=== PATIENT | male | born 1965 | race Caucasian/White ===

== ENCOUNTER 2024-03-12 20:39 | Observation (INO) | payer OTHER, SELFPAY ==
[2024-03-12] VITALS (11 sets, daily range): BP systolic 97–124; BP diastolic 66–91; PULSE 97–122; RESP 28; TEMP 36.8; O2SAT 94–97
--- NOTE | 2024-03-12 20:41 | ED_ITS ---
HPI - General Adult General Time Seen by Provider: 20:41 Date Seen: 03/12/24 Chief complaint: Shortness of Breath/Dyspnea Stated complaint: Diff breathing/severe pain lower abdomen Time Seen by Provider: 03/12/24 20:41 Source: patient Mode of arrival: ambulatory Limitations: no limitations History of Present Illness HPI narrative: Jorje is a 58-year-old male with history of elevated BMI, hypertension, shortness of breath recently thought to be related to fluid retention but also put on inhalers who comes to the emergency room with his son for evaluation of not feeling well. Jorje notes that over the last week he has had increased fluid retention and was put on a diuretic a week ago. He notes that he has been dealing with some shortness of breath for many months but today at 0300 hours it became suddenly worse. He has not been coughing nor has he had a fever but does does note that he is sweating. He states he just has not felt well all day. He notes he has had 3 days of constipation and this morning had a small amount of blood on the toilet paper. He has not been vomiting. He notes a new hip from 2020 on the left and he did have some tingling into his left foot. It is now better since he has changed positions on the bed. He denies a headache. He also notes that he has had change in his voice since being sick with respiratory illness in November. Patient states he was recently evaluated by his primary and he does not have congestive heart failure and had an echocardiogram and it was normal. However, he was put on a diuretic. He agrees that his lower extremities are swollen. He has a few beers daily. Patient is a very challenging historian as he hops from subject to subject. I understand that he was not feeling well all day and at 1600 hours had difficulty with breathing. He has had having difficulty breathing for months and has gone through different evaluations with his primary. He denies chest pain at this time but notes intermittent spasm in his right lower quadrant. He does note he has an umbilical hernia he has been constipated for 3 days. Related Data Home Medications Medication Instructions Recorded Confirmed atenolol 100 mg tablet 100 mg PO DAILY 03/12/24 03/12/24 atorvastatin 40 mg tablet 40 mg PO QPM 03/12/24 03/12/24 finasteride 5 mg tablet 5 mg PO DAILY 03/12/24 03/12/24 fluticasone 250 mcg-salmeterol 50 1 ea inhalation Q12H 03/12/24 03/12/24 mcg/dose blistr powdr for inhalation fluticasone propionate 50 2 spray intranasal DAILY 03/12/24 03/12/24 mcg/actuation nasal spray,suspension furosemide 40 mg tablet 40 mg PO DAILY 03/12/24 03/12/24 lisinopril 40 mg tablet 40 mg PO DAILY 03/12/24 03/12/24 tiotropium bromide 1.25 2 puff inhalation DAILY 03/12/24 03/12/24 mcg/actuation mist for inhalation (Spiriva Respimat) triamterene 37.5 1 cap PO QAM 03/12/24 03/12/24 mg-hydrochlorothiazide 25 mg capsule Allergies Allergy/AdvReac Type Severity Reaction Status Date / Time No Known Drug Allergies Allergy Verified 03/12/24 20:51 Review of Systems Status of ROS: Reports: 10 or more systems reviewed and unremarkable except as noted in History and below Const: Reports: fatigue; Denies: fever or chills Eyes: Denies: change in vision ENMT: Denies: neck pain, throat swelling, nasal discharge or nasal congestion Cardio: Reports: edema, swelling of feet/ankles, shortness of breath with exertion and shortness of breath when lying down; Denies: chest pain or lightheadedness Resp: Reports: shortness of breath; Denies: cough GI: Reports: abdominal pain, constipation and blood in stool (Small amount of blood on stool this morning); Denies: nausea or vomiting : Denies: painful urination Musculo: Reports: extremity pain (Improved with position change of left leg.); Denies: back pain or neck pain Neuro: Denies: headache Endo: Reports: fatigue Allergy/Immuno: Denies: throat swelling PFSH PFSH Social History Smoking Status: Current every day smoker What tobacco products do you use: cigarettes Smoking packs per day: 1 Smoking cigarettes per day: 20.0 Do you use any of these nicotine containing products: None Second hand tobacco smoke exposure: No How often do you have a drink containing alcohol: 2-3 times a week How many standard drinks containing alcohol do you have on a typical day: 3 or 4 AUDIT-C Alcohol total score: 4 Non-prescribed substance use: denies use service: No Exam Narrative: Exam Narrative: Patient is awake and alert and very anxious. He is diaphoretic speaking quickly and states he is scared. He is very challenging with a history as he jumps from subject to subject. I am having a hard time ascertaining what is new verses chronic for him. Head is atraumatic normocephalic. Mute moist mucous membranes. Neck is supple. No lymphadenopathy. Heart with a tachycardic rate but normal rhythm. Lungs are actually clear bilaterally in the bases. Abdomen is obese soft no tenderness elicited. Reducible umbilical hernia noted. Lower extremities with 2+ edema. He is moving all extremities. Const: Vital Signs, click to edit/add: Vital Signs - 24 hr 03/12/24 20:42 03/12/24 20:49 03/12/24 20:58 Temperature 98.2 F Pulse Rate 112 H Pulse Rate [Pulse Oximeter] 122 H Respiratory Rate 28 H Blood Pressure Blood Pressure [Ri ght Upper Arm] 119/91 H Pulse Oximetry 94 94 96 Oxygen Delivery Me thod Nasal Cannula Oxygen Flow Rate 2 03/12/24 21:00 03/12/24 21:17 03/12/24 21:30 Temperature Pulse Rate 111 H 106 H 103 H Pulse Rate [Pulse Oximeter] Respiratory Rate Blood Pressure 97/79 Blood Pressure [Ri ght Upper Arm] Pulse Oximetry 96 95 95 Oxygen Delivery Me thod Oxygen Flow Rate 03/12/24 22:00 03/12/24 23:08 03/12/24 23:18 Temperature Pulse Rate 100 97 101 H Pulse Rate [Pulse Oximeter] Respiratory Rate Blood Pressure 103/66 Blood Pressure [Ri ght Upper Arm] Pulse Oximetry 96 96 94 Oxygen Delivery Me thod Oxygen Flow Rate 03/12/24 23:30 03/12/24 23:35 03/13/24 00:00 Temperature Pulse Rate 103 H 100 102 H Pulse Rate [Pulse Oximeter] Respiratory Rate Blood Pressure 124/76 Blood Pressure [Ri ght Upper Arm] Pulse Oximetry 97 95 96 Oxygen Delivery Me thod Oxygen Flow Rate 03/13/24 00:01 03/13/24 00:01 03/13/24 00:01 Temperature Pulse Rate 100 100 100 Pulse Rate [Pulse Oximeter] Respiratory Rate Blood Pressure 111/86 111/86 111/86 Blood Pressure [Ri ght Upper Arm] Pulse Oximetry 94 94 94 Oxygen Delivery Me thod Oxygen Flow Rate 03/13/24 00:30 03/13/24 00:31 03/13/24 00:31 Temperature Pulse Rate 105 H 105 H 105 H Pulse Rate [Pulse Oximeter] Respiratory Rate Blood Pressure 116/80 116/80 Blood Pressure [Ri ght Upper Arm] Pulse Oximetry 95 95 95 Oxygen Delivery Me thod Oxygen Flow Rate 03/13/24 00:31 Temperature Pulse Rate 105 H Pulse Rate [Pulse Oximeter] Respiratory Rate Blood Pressure 116/80 Blood Pressure [Ri ght Upper Arm] Pulse Oximetry 95 Oxygen Delivery Me thod Oxygen Flow Rate Documenting provider has reviewed patient's vital signs: yes Course Course ED Course: At this time differential diagnosis is quite broad. Patient presents in a very dramatic fashion. Differential diagnosis includes but is not limited to aortic dissection, acute coronary event, congestive heart failure, pneumonia, COPD, appendicitis, bowel obstruction, PE. Will place an IV. Labs to include CBC, comprehensive panel, CRP, lactate and urinalysis. ProBNP has also been added as well as a lipase. O2 sats initially 92-94% on room air. I did add nasal cannula oxygen and patient did have relief more objectively than subjectively. Reevaluation(s) Reevaluation #1: During patient's stay realize that he had not been to CT for his stat chest abdomen pelvis as nursing was waiting on a creatinine. I have asked him to do a point of care creatinine. Reevaluation #2: Patient's heart rate has slowed to just over 100. Given a lactate of 4.1 I did start fluids but patient's immediately became short of breath. I do think there is an element of anxiety but we did discontinue fluids. Given history of fluid retention over the last week with a normal creatinine I did give him 40 mg of IV Lasix. He thinks that he has felt better slightly since he has been urinating. At this time EKG shows no acute findings except for tachycardia. Initial troponin is negative. Patient is refusing fluids. Alcohol level is elevated to 0.13. And pelvic CT is negative for aortic dissection or other acute findings. Doppler of the lower extremity shows no evidence of DVT. ProBNP is within normal limits. I do ask patient whether he smokes and he does not really answer me. I do speak about COPD and he states his doctor has been talking to him about that. A repeat troponin is negative and therefore will try a DuoNeb and give him a dose of steroids with working diagnosis of COPD as we have ruled out acute coronary event, DVT, dissection, pneumonia. Reevaluation #3: Patient did have some mild improvement after the nebulizer. O2 was taken off and patient does desat to 91%. He is also given 60 of Solu-Medrol. At this time given all the other negative findings working diagnosis is COPD exacerbation. I did add a urine and drug screen. Additional Reevaluation(s): Given dramatic presentation, multiple risk factors, persistent tachycardia I have elected to admit this gentleman to the hospital for ongoing observation. I did reassure his son that we found no evidence of acute coronary event, aortic dissection, bowel obstruction. Vital Signs Vital signs: Initial Vital Signs Temperature 98.2 F 03/12/24 20:42 Temperature Source Oral 03/12/24 20:42 Pulse Rate 122 H 03/12/24 20:42 Pulse Rhythm Regular 03/12/24 20:42 Pulse Strength 3+ Normal 03/12/24 20:42 Respiratory Rate 28 H 03/12/24 20:42 Blood Pressure 119/91 H 03/12/24 20:42 Blood Pressure Mean 100 03/12/24 20:42 Blood Pressure Position Sitting 03/12/24 20:42 Pulse Oximetry 94 03/12/24 20:42 Oxygen Delivery Method Nasal Cannula 03/12/24 20:42 Oxygen Flow Rate 2 03/12/24 20:42 Vital Signs Temperature 98.2 F 03/12/24 20:42 Pulse Rate 122 H 03/12/24 20:42 Respiratory Rate 28 H 03/12/24 20:42 Blood Pressure 119/91 H 03/12/24 20:42 Pulse Oximetry 94 03/12/24 20:42 Oxygen Delivery Method Nasal Cannula 03/12/24 20:42 Oxygen Flow Rate 2 03/12/24 20:42 Temperature 98.2 F 03/12/24 20:42 Pulse Rate 105 H 03/13/24 00:31 Respiratory Rate 28 H 03/12/24 20:42 Blood Pressure 116/80 03/13/24 00:31 Pulse Oximetry 95 03/13/24 00:31 Oxygen Delivery Method Nasal Cannula 03/12/24 20:42 Oxygen Flow Rate 2 03/12/24 20:42 Medications Administered Medications: Generic Name Dose Route Start Last Admin Trade Name Freq PRN Reason Stop Dose Admin Albuterol/Ipratropium 1 neb 03/13/24 00:55 03/13/24 01:15 Iprat-Albut 0.5-2.5 Mg/3 Ml Neb IH 03/13/24 00:56 1 neb ONCE ONE Administration Methylprednisolone Sodium Succinate 60 mg 03/13/24 00:55 03/13/24 01:15 Methylprednisolone Sod Succ 40 Mg/Ml IVP 03/13/24 00:56 60 mg ONCE ONE Administration Discontinued Medications Generic Name Dose Route Start Last Admin Trade Name Freq PRN Reason Stop Dose Admin Furosemide 40 mg 03/12/24 22:58 03/12/24 23:25 Furosemide 10 Mg/Ml Inj IVP 03/12/24 22:59 40 mg ONCE ONE Administration Sodium Chloride 1,000 mls @ 1,000 mls/hr 03/12/24 22:58 03/12/24 23:46 0.9 % Sodium Chloride 1000 Ml IV 03/12/24 23:57 0 mls/hr .Q1H [facility] Infusion Medical Decision Making MDM Narrative Medical decision making narrative: 1. COPD exacerbation-patient now admits that he is a smoker. Has tried to quit in the past. He has had difficulty with breathing for at least 4 months. Today he notes acute onset of shortness of breath at 1600 hours. He was diaphoretic and mildly hypoxic at 90-92% upon arrival. O2 did make him feel better. He was still quite restless. Initial chest x-ray did not show widened mediastinum but radiological over-read felt there might be a right lower lobe hazy opacity. Thi s was not noted on the CT and there is no evidence pneumonia on CT. CT of the chest abdomen and pelvis rule out an aortic dissection, pneumonia, intra- abdominal pathology. 2 sets of cardiac enzymes were negative. He continues to be tachycardic at this time. Did have relief with a DuoNeb and did receive Solu-Medrol 60 mg IV. 2. Persistent tachycardia-this is in the setting of an elevated white count of greater than 13,000, CRP of 1.7 and initial lactate of 4.1. Patient felt like he was becoming more and more short of breath when we tried to give him fluids and thus we did have to discontinue that. He had been given Lasix 40 mg as he had described increasing fluid retention throughout the week. He has urinated here quite a few times. There was no evidence of CHF on a chest x-ray and proBNP was 24. He has not had echocardiogram in the past. His follow-up lactate was 2.5 without any fluid. Drug screen is negative. No evidence of UTI or any other infection at this time. At this time I do believe that the leukocytosis is secondary to de margination. I do think patient was presenting with significant amount of anxiety. Note did do a lower extremity Doppler to ensure no evidence of DVT. It was negative. 3. Abdominal discomfort-this was intermittent and I think was actually more spasm or muscular as I was unable to palpate an area that caused him discomfort. He did have an easily reducible umbilical hernia. Abdomen CT was reassuring. 4. Alcohol use-appears to be daily with a few beers. Alcohol level was 0.13. LFTs within normal limits. 5. Mild hyponatremia -130. 6. Disposition-admit outpatient observation under the care of the [facility] hospitalist. Addendum: Patient's O2 sats did drop to 88-89% while sleeping. Oxygen was restarted at 2 L. patient does agree he is feeling much better after the nebulizer and steroids. Seems much more comfortable. He is sleeping at this time. Medical Records Medical records reviewed: Yes I reviewed the patient's medical records Lab Data Lab results reviewed: Yes I reviewed the patient's lab results Labs: Lab Results 03/12/24 03/12/24 03/12/24 Range/Units 20:00 21:07 22:06 WBC 13.49 H (4.50-11.00) K/uL RBC 4.63 (4.30-5.90) m/uL Hgb 15.4 (13.5-17.5) gm/dL Hct 44.5 (37.0-53.0) % MCV 96 (80-100) fL MCH 33 (26-34) pg MCHC 35 (32-36) gm/dL RDW Coeff of Krunal 11.9 (11.5-15.5) % Plt Count 214 (140-440) K/uL Neut % (Auto) 62.8 (42.0-72.0) % Lymph % (Auto) 26.2 (20-44) % Mower % (Auto) 7.5 (0.0-11.0) % Eos % (Auto) 2.6 (0.0-7.0) % Baso % (Auto) 0.2 (0.0-3.0) % Neut # (Auto) 8.50 H (1.7-7.0) K/uL Lymph # (Auto) 3.50 H (0.90-2.90) K/uL Mower # (Auto) 1.00 H (0.00-0.90) K/UL Eos # (Auto) 0.40 (0.00-0.50) K/uL Baso # (Auto) 0.00 (0.00-0.30) K/uL Abs Immat Gran (auto) 0.10 (0.00-0.30) K/uL Imm/Tot Granulo (auto) 0.7 % Sodium 130 L (135-149) mmol/L Potassium 3.7 (3.6-5.1) mmol/L Chloride 93 L (96-114) mmol/L Carbon Dioxide 25 (20-32) mmol/L Anion Gap 12 (7-15) mEq/L BUN 16 (7-30) mg/dL Creatinine 0.9 (0.5-1.5) mg/dL Estimated GFR 98 ml/min Glucose 108 (60-115) mg/dL Lactate 4.1 H* (0.5-1.9) mmol/L Calcium 8.8 (8.4-10.6) mg/dL Total Bilirubin 0.7 (0.1-1.5) mg/dL AST 57 H (12-35) U/L ALT 31 (4-50) U/L Alkaline Phosphatase 100 (40-150) U/L C-Reactive Protein 1.7 H (0.5-1.0) mg/dL NT-Pro-B Natriuret Pep 24 pg/mL Total Protein 8.1 (6.0-8.3) g/dL Albumin 4.5 (3.3-5.0) g/dL Urine Color (Yellow) Urine Appearance (Clear) Urine pH (5.0-8.5) Ur Specific [place] (1.000-1.030) Urine Protein (Negative) Urine Glucose (UA) (Negative) Urine Ketones (Negative) Urine Blood (Negative) Urine Nitrite (Negative) Urine Bilirubin (Negative) Urine Urobilinogen (0.2-1.0) Ur Leukocyte Esterase (Negative) Urine RBC (0-2) Urine WBC (0-5) Ur Squamous Epith Cells (None-Few) Urine Bacteria (None) Urine Opiates Screen (Negative) Ur Oxycodone Screen (Negative) Urine Methadone Screen (Negative) Ur Barbiturates Screen (Negative) U Tricyclic Antidepress (Negative) Ur Phencyclidine Scrn (Negative) Ur Amphetamines Screen (Negative) U Methamphetamines Scrn (Negative) U Benzodiazepines Scrn (Negative) Urine Cocaine Screen (Negative) U Marijuana (THC) Screen (Negative) Ur Drug Screen Comment Ethyl Alcohol 0.13 H (0.01-0.03) % Lab Acknowledgement POC Creatinine 1.2 (0.6-1.3) mg/dl POC Troponin I 0.00 L (0.01-0.04) ng/ml 03/12/24 03/13/24 03/13/24 Range/Units 22:58 00:23 01:17 WBC (4.50-11.00) K/uL RBC (4.30-5.90) m/uL Hgb (13.5-17.5) gm/dL Hct (37.0-53.0) % MCV (80-100) fL MCH (26-34) pg MCHC (32-36) gm/dL RDW Coeff of Krunal (11.5-15.5) % Plt Count (140-440) K/uL Neut % (Auto) (42.0-72.0) % Lymph % (Auto) (20-44) % Mower % (Auto) (0.0-11.0) % Eos % (Auto) (0.0-7.0) % Baso % (Auto) (0.0-3.0) % Neut # (Auto) (1.7-7.0) K/uL Lymph # (Auto) (0.90-2.90) K/uL Mower # (Auto) (0.00-0.90) K/UL Eos # (Auto) (0.00-0.50) K/uL Baso # (Auto) (0.00-0.30) K/uL Abs Immat Gran (auto) (0.00-0.30) K/uL Imm/Tot Granulo (auto) % Sodium (135-149) mmol/L Potassium (3.6-5.1) mmol/L Chloride (96-114) mmol/L Carbon Dioxide (20-32) mmol/L Anion Gap (7-15) mEq/L BUN (7-30) mg/dL Creatinine (0.5-1.5) mg/dL Estimated GFR ml/min Glucose (60-115) mg/dL Lactate 2.5 H (0.5-1.9) mmol/L Calcium (8.4-10.6) mg/dL Total Bilirubin (0.1-1.5) mg/dL AST (12-35) U/L ALT (4-50) U/L Alkaline Phosphatase (40-150) U/L C-Reactive Protein (0.5-1.0) mg/dL NT-Pro-B Natriuret Pep pg/mL Total Protein (6.0-8.3) g/dL Albumin (3.3-5.0) g/dL Urine Color (Yellow) Urine Appearance (Clear) Urine pH (5.0-8.5) Ur Specific [place] (1.000-1.030) Urine Protein (Negative) Urine Glucose (UA) (Negative) Urine Ketones (Negative) Urine Blood (Negative) Urine Nitrite (Negative) Urine Bilirubin (Negative) Urine Urobilinogen (0.2-1.0) Ur Leukocyte Esterase (Negative) Urine RBC (0-2) Urine WBC (0-5) Ur Squamous Epith Cells (None-Few) Urine Bacteria (None) Urine Opiates Screen (Negative) Ur Oxycodone Screen (Negative) Urine Methadone Screen (Negative) Ur Barbiturates Screen (Negative) U Tricyclic Antidepress (Negative) Ur Phencyclidine Scrn (Negative) Ur Amphetamines Screen (Negative) U Methamphetamines Scrn (Negative) U Benzodiazepines Scrn (Negative) Urine Cocaine Screen (Negative) U Marijuana (THC) Screen (Negative) Ur Drug Screen Comment Ethyl Alcohol (0.01-0.03) % Lab Acknowledgement Test Added POC Creatinine (0.6-1.3) mg/dl POC Troponin I 0.01 (0.01-0.04) ng/ml 03/13/24 Range/Units 01:26 WBC (4.50-11.00) K/uL RBC (4.30-5.90) m/uL Hgb (13.5-17.5) gm/dL Hct (37.0-53.0) % MCV (80-100) fL MCH (26-34) pg MCHC (32-36) gm/dL RDW Coeff of Krunal (11.5-15.5) % Plt Count (140-440) K/uL Neut % (Auto) (42.0-72.0) % Lymph % (Auto) (20-44) % Mower % (Auto) (0.0-11.0) % Eos % (Auto) (0.0-7.0) % Baso % (Auto) (0.0-3.0) % Neut # (Auto) (1.7-7.0) K/uL Lymph # (Auto) (0.90-2.90) K/uL Mower # (Auto) (0.00-0.90) K/UL Eos # (Auto) (0.00-0.50) K/uL Baso # (Auto) (0.00-0.30) K/uL Abs Immat Gran (auto) (0.00-0.30) K/uL Imm/Tot Granulo (auto) % Sodium (135-149) mmol/L Potassium (3.6-5.1) mmol/L Chloride (96-114) mmol/L Carbon Dioxide (20-32) mmol/L Anion Gap (7-15) mEq/L BUN (7-30) mg/dL Creatinine (0.5-1.5) mg/dL Estimated GFR ml/min Glucose (60-115) mg/dL Lactate (0.5-1.9) mmol/L Calcium (8.4-10.6) mg/dL Total Bilirubin (0.1-1.5) mg/dL AST (12-35) U/L ALT (4-50) U/L Alkaline Phosphatase (40-150) U/L C-Reactive Protein (0.5-1.0) mg/dL NT-Pro-B Natriuret Pep pg/mL Total Protein (6.0-8.3) g/dL Albumin (3.3-5.0) g/dL Urine Color Yellow (Yellow) Urine Appearance Clear (Clear) Urine pH 5.5 (5.0-8.5) Ur Specific [place] <= 1.005 (1.000-1.030) Urine Protein Negative (Negative) Urine Glucose (UA) Negative (Negative) Urine Ketones Negative (Negative) Urine Blood Negative (Negative) Urine Nitrite Negative (Negative) Urine Bilirubin Negative (Negative) Urine Urobilinogen 0.2 (0.2-1.0) Ur Leukocyte Esterase Negative (Negative) Urine RBC 0-2 (0-2) Urine WBC 0-2 (0-5) Ur Squamous Epith Cells Few (None-Few) Urine Bacteria None (None) Urine Opiates Screen Negative (Negative) Ur Oxycodone Screen Negative (Negative) Urine Methadone Screen Negative (Negative) Ur Barbiturates Screen Negative (Negative) U Tricyclic Antidepress Negative (Negative) Ur Phencyclidine Scrn Negative (Negative) Ur Amphetamines Screen Negative (Negative) U Methamphetamines Scrn Negative (Negative) U Benzodiazepines Scrn Negative (Negative) Urine Cocaine Screen Negative (Negative) U Marijuana (THC) Screen Negative (Negative) Ur Drug Screen Comment See Note Ethyl Alcohol (0.01-0.03) % Lab Acknowledgement POC Creatinine (0.6-1.3) mg/dl POC Troponin I (0.01-0.04) ng/ml Imaging Data Chest x-ray: Attestation: I have reviewed the pertinent imaging results. My impression: I do not note widened mediastinum Radiologist's impression: Cardiovascular and mediastinum: Heart size and vasculature are normal in caliber and appearance. Lungs and pleural spaces: Hazy opacity in the medial right lung base. Left lung is clear. No pleural effusions or pneumothorax. Bones and soft tissues: No significant findings. IMPRESSION: Hazy opacity in the medial right lung base, nonspecific may represent atelectasis or infiltrates. CT Chest/Ab/Pelvis: Attestation: I have reviewed the pertinent imaging results. My impression: I do not note any obvious aortic dissection Radiologist's impression: Cardiovascular structures: Heart size is normal. Thoracic aorta and main pulmonary artery are normal in caliber. No pulmonary embolism or pericardial effusion. Mediastinum and azeb: No mass or adenopathy. Lungs and pleura: No consolidation, suspicious nodule, pleural effusion, or pneumothorax. Chest wall and axilla: No mass or adenopathy. Bones: No suspicious bone lesions. Unremarkable for age. ABDOMEN AND PELVIS: Liver: Unremarkable. Gallbladder and bile ducts: Unremarkable. Pancreas: Unremarkable. Spleen: Unremarkable. Adrenal glands: Unremarkable. Kidneys: Unremarkable. GI tract: Unremarkable. Vascular structures: Normal caliber abdominal aorta with mild atherosclerotic calcification. Lymph nodes: Unremarkable. Miscellaneous: Small fat-containing periumbilical hernia. No free air or significant free fluid. Pelvic Organs: Unremarkable. Bones: No suspicious bone lesions. Left total hip arthroplasty. Otherwise, unremarkable for age. IMPRESSION: No acute findings within the chest, abdomen, and pelvis. Venous US: Attestation: I have reviewed the pertinent imaging results. Radiologist's impression: Deep veins: Sonographic imaging demonstrates the bilateral common femoral, deep femoral, superficial femoral, popliteal, and posterior tibial veins to be fully compressible with normal color Doppler blood flow. Superficial veins: Greater saphenous vein is fully compressible. No popliteal cyst. IMPRESSION: No sign of deep venous thrombosis in the bilateral lower extremities. ECG Data Attestation: I personally reviewed and interpreted this ECG as follows: Interpretation: EKG 1. By my read shows sinus tachycardia at a rate of 112. Normal QT and LA intervals. I do not note any acute ST or T-wave changes. EKG 2. By my read shows normal sinus rhythm at a rate of 100. Q-wave noted in aVL unchanged from previous. Otherwise no acute ST or T-wave changes. QT [id number]. Discharge Plan Discharge Clinical Impression: Acute exacerbation of chronic obstructive pulmonary disease, Fluid retention Blood-alcohol level elevation Qualifiers: Blood alcohol level: level not specified Qualified Code(s): R78.0 - Finding of alcohol in blood Patient Disposition: Admitted As Observation Condition: Improved
--- NOTE | 2024-03-12 20:45 | XR_ITS ---
Patient: LYNDON FLOYD Facility:?[facility] Patient ID:?[id number] Site Patient ID:?[id number] Site :?[id number] Study:?XRay-Chest PCXR-03/12/2024 9:12:44 PM Ordering Physician:AZUL Final Report: INDICATION: Shortness of breath. TECHNIQUE: Chest 1 view. COMPARISON: None. FINDINGS: Cardiovascular and mediastinum: Heart size and vasculature are normal in caliber and appearance. Lungs and pleural spaces: Hazy opacity in the medial right lung base. Left lung is clear. No pleural effusions or pneumothorax. Bones and soft tissues: No significant findings. IMPRESSION: Hazy opacity in the medial right lung base, nonspecific may represent atelectasis or infiltrates. Dictated by Kyler Aldridge MD @ 03/12/2024 9:38:43 PM Signed by:?Kyler Aldridge MD @03/12/2024 9:38:43 PM (Electronic Signature)
--- NOTE | 2024-03-12 20:49 | CT_ITS ---
Patient: LYNDON FLOYD Facility:?[facility] Patient ID:?[id number] Site Patient ID:?[id number] Site :?[id number] Study:?CT-Chest/Abd/Pelvis W/150ML ISOVUE 370-03/12/2024 10:23:48 PM Ordering Physician:KURT LIANG Final Report: INDICATION: Difficulty breathing, abdominal pain TECHNIQUE: CT chest, abdomen and pelvis acquired with 150 cc of Isovue 370 IV contrast. COMPARISON: None. FINDINGS: CHEST: Cardiovascular structures: Heart size is normal. Thoracic aorta and main pulmonary artery are normal in caliber. No pulmonary embolism or pericardial effusion. Mediastinum and azeb: No mass or adenopathy. Lungs and pleura: No consolidation, suspicious nodule, pleural effusion, or pneumothorax. Chest wall and axilla: No mass or adenopathy. Bones: No suspicious bone lesions. Unremarkable for age. ABDOMEN AND PELVIS: Liver: Unremarkable. Gallbladder and bile ducts: Unremarkable. Pancreas: Unremarkable. Spleen: Unremarkable. Adrenal glands: Unremarkable. Kidneys: Unremarkable. GI tract: Unremarkable. Vascular structures: Normal caliber abdominal aorta with mild atherosclerotic calcification. Lymph nodes: Unremarkable. Miscellaneous: Small fat-containing periumbilical hernia. No free air or significant free fluid. Pelvic Organs: Unremarkable. Bones: No suspicious bone lesions. Left total hip arthroplasty. Otherwise, unremarkable for age. IMPRESSION: No acute findings within the chest, abdomen, and pelvis. Please note that all CT scans at this facility use dose modulation, iterative reconstruction, and/or weight-based dosing when appropriate to reduce radiation dose to as low as reasonably achievable. Dictated by Perfecto Smiley MD @ 03/12/2024 10:32:27 PM Signed by:?Perfecto Smiley MD @03/12/2024 10:32:27 PM (Electronic Signature)
[2024-03-12 21:16] LABS: Basophils Percent Auto 0.2 % (0.0-3.0); Eosinophils Percent Auto 2.6 % (0.0-7.0); Hematocrit 44.5 % (37.0-53.0); Hemoglobin* 15.4 gm/dL (13.5-17.5); Immature Granulocytes Pct Auto 0.7 %; Lactate* 4.1 mmol/L (0.5-1.9); Lymphocytes Percent Auto 26.2 % (20-44); Mean Corpuscular HGB Conc 35 gm/dL (32-36); Mean Corpuscular Hemoglobin 33 pg (26-34); Mean Corpuscular Volume 96 fL (80-100); Monocytes Percent Auto 7.5 % (0.0-11.0); Neutrophils Percent Auto 62.8 % (42.0-72.0); Platelet Count* 214 K/uL (140-440); RDW Coefficient of Variation % 11.9 % (11.5-15.5); Red Blood Count 4.63 m/uL (4.30-5.90); White Blood Count* 13.49 K/uL (4.50-11.00)
[2024-03-12 21:27] LABS: Slide Review Reflex No
[2024-03-12 21:30] LABS: Albumin* 4.5 g/dL (3.3-5.0); Chloride* 93 mmol/L (96-114)
[2024-03-12 21:31] LABS: Potassium* 3.7 mmol/L (3.6-5.1); Sodium* 130 mmol/L (135-149)
[2024-03-12 21:33] LABS: Alkaline Phosphatase* 100 U/L (40-150); Anion Gap 12 mEq/L (7-15); Aspartate Amino Transferase* 57 U/L (12-35); Bilirubin Total* 0.7 mg/dL (0.1-1.5); Carbon Dioxide* 25 mmol/L (20-32); Creatinine* 0.9 mg/dL (0.5-1.5); Estimated Glomerular Filt Rate 98 ml/min; Total Protein* 8.1 g/dL (6.0-8.3)
[2024-03-12 21:34] LABS: Alanine Aminotransferase* 31 U/L (4-50); Blood Urea Nitrogen* 16 mg/dL (7-30); Calcium* 8.8 mg/dL (8.4-10.6); Glucose* 108 mg/dL (60-115)
[2024-03-12 21:35] LABS: Ethanol* 0.13 % (0.01-0.03)
[2024-03-12 21:36] LABS: C Reactive Protein* 1.7 mg/dL (0.5-1.0)
[2024-03-12 21:46] LABS: NT Pro B Type NatriureticPept* 24 pg/mL
[2024-03-12 22:06] LABS: Creatinine, Point-of-Care* 1.2 mg/dl (0.6-1.3)
[2024-03-12] MEDS: FUROSEMIDE 10 MG/ML inj 40 MG IVP (23:25)
[2024-03-12] MEDS: 0.9 % SODIUM CHLORIDE 1000 ml 1,000 ML IV (23:25)
[2024-03-13] VITALS (24 sets, daily range): BP systolic 111–151; BP diastolic 74–90; PULSE 98–116; RESP 18–22; TEMP 36.5–37; O2SAT 90–96
--- NOTE | 2024-03-13 00:01 | US_ITS ---
Patient: LYNDON FLOYD Facility:?[facility] Patient ID:?[id number] Site Patient ID:?[id number] Site :?[id number] Study:?US-Extremity Bilateral LEV-03/13/2024 1:10:45 AM Ordering Physician:Nilton Final Report: INDICATION: Shortness of breath. TECHNIQUE: Ultrasound venous duplex bilateral lower extremity. Compression venous exam was performed using watson-scale, color Doppler, and spectral Doppler analysis. COMPARISON: None. FINDINGS: Deep veins: Sonographic imaging demonstrates the bilateral common femoral, deep femoral, superficial femoral, popliteal, and posterior tibial veins to be fully compressible with normal color Doppler blood flow. Superficial veins: Greater saphenous vein is fully compressible. No popliteal cyst. IMPRESSION: No sign of deep venous thrombosis in the bilateral lower extremities. Dictated by Kyler Aldridge MD @ 03/13/2024 1:13:21 AM Signed by:?Kyler Aldridge MD @03/13/2024 1:13:21 AM (Electronic Signature)
[2024-03-13 00:48] LABS: Lactate* 2.5 mmol/L (0.5-1.9)
[2024-03-13] MEDS: METHYLPREDNISOLONE SOD SUCC 40 MG/ML 60 MG IVP (01:15)
[2024-03-13] MEDS: IPRAT-ALBUT 0.5-2.5 MG/3 ML NEB 1 NEB IH ×6 (01:15→20:51)
[2024-03-13 01:20] LABS: Troponin, Point-of-Care* 0.01 ng/ml (0.01-0.04)
[2024-03-13 01:40] LABS: Appearance Urine Clear (Clear); Bilirubin Urine Negative (Negative); Blood Urine Negative (Negative); Color Urine Yellow (Yellow); Glucose Urine Negative (Negative); Ketones Urine Negative (Negative); Leukocyte Esterase Urine Negative (Negative); Nitrite Urine Negative (Negative); Protein Urine Negative (Negative); Specific Gravity Urine <= 1.005 (1.000-1.030); Urobilinogen Urine 0.2 (0.2-1.0); pH Urine 5.5 (5.0-8.5)
[2024-03-13 01:49] LABS: Amphetamine Screen Urine Negative (Negative); Barbiturate Screen Urine Negative (Negative); Benzodiazepines Screen Urine Negative (Negative); Cannabinoid Screen Urine Negative (Negative); Cocaine Screen Urine Negative (Negative); Methadone Screen Urine Negative (Negative); Methamphetamines Screen Urine Negative (Negative); Opiate Screen Urine Negative (Negative); Oxycodone Screen Urine Negative (Negative); Phencyclidine Screen Urine Negative (Negative); Tricyclic Antidepressant Urine Negative (Negative)
[2024-03-13 01:52] LABS: RBC Urine 0-2 (0-2); Squamous Epithelial Cell Urine Few (None-Few); WBC Urine 0-2 (0-5)
[2024-03-13 02:05] LABS: Lipase* 189 U/L (23-300)
[2024-03-13 02:12] LABS: PCR FLU A Negative PCR FLU A (Negative); PCR FLU B Negative PCR FLU B (Negative); PCR RSV Negative PCR RSV (Negative); SARS PCR* Negative SARS-CoV-2 (Negative)
--- NOTE | 2024-03-13 04:56 | W.PM.THH&P_ITS ---
Telehealth- H&P: HPI History of Present Illness Date Seen: 03/13/24 Chief complaint: Diff breathing/severe pain lower abdomen Narrative: Jorje Arreola is seen as an Interactive Telehealth visit. Jorje Arreola is a 58 year old male who Presents to the ER with complaints of shortness of breath and abdominal pain. Patient has been experiencing increasing shortness of breath over the past few weeks. He has been seeing his primary care provider and due to his lower extremity swelling and shortness of breath he was put on Lasix. This did not seem to help with shortness of breath although it did help his lower extremity swelling. Today he was working in his shop when he was having increasing shortness of breath. But he was essentially in his normal state of health. When after coming home he had approximately 5-6 beers and then developed a sudden onset severe shortness of breath. The patient was unable to breathe and catch his breath and started to panic. He was in visible distress and started breathing from his abdomen which caused him to have abdominal pain. When he came to the ER he underwent extensive imaging including chest x-ray and CT chest abdomen pelvis which did not show any acute intervention. He was noted to have lactic acidosis normal BNP and significant hypoxia. He was placed on 2 L of oxygen and given IV fluids. His lactic acid did eventually improve. After physical exam, the patient underwent DuoNebs and steroids which made his symptoms significantly improved. Patient will be admitted to the hospital for presumptive COPD exacerbation Review of Systems Status of ROS: Reports: 6 or more systems reviewed and unremarkable except as noted in History and below Const: Denies: fever or fatigue Eyes: Denies: change in vision ENMT: Reports: nasal congestion and post nasal drip; Denies: throat pain Cardio: Reports: edema, swelling of feet/ankles and shortness of breath with exertion; Denies: chest pain, palpitations or shortness of breath when lying down Resp: Reports: shortness of breath, cough, stridor, pain on inspiration, change in phlegm color and chest congestion GI: Reports: abdominal pain : Denies: painful urination or urinary frequency Musculo: Reports: back pain Neuro: Reports: headache Psych: Reports: anxiety Endo: Denies: fatigue [facility] Medical History (Updated 03/13/24 @ 05:04 by Reddy Benavidez MD) Fluid retention ?R60.9 - Edema, unspecified (ICD-10) Social History Smoking Status: Current every day smoker What tobacco products do you use: cigarettes Smoking packs per day: 1 Smoking cigarettes per day: 20.0 Do you use any of these nicotine containing products: None Second hand tobacco smoke exposure: No How often do you have a drink containing alcohol: 2-3 times a week How many standard drinks containing alcohol do you have on a typical day: 3 or 4 AUDIT-C Alcohol total score: 4 Non-prescribed substance use: denies use service: No Meds Home Medications and Allergies Home Medications Medication Instructions Recorded Confirmed Type atenolol 100 mg tablet 100 mg PO DAILY 03/12/24 03/12/24 History atorvastatin 40 mg tablet 40 mg PO QPM 03/12/24 03/12/24 History finasteride 5 mg tablet 5 mg PO DAILY 03/12/24 03/12/24 History fluticasone 250 mcg-salmeterol 50 1 ea inhalation Q12H 03/12/24 03/12/24 History mcg/dose blistr powdr for inhalation fluticasone propionate 50 2 spray intranasal DAILY 03/12/24 03/12/24 History mcg/actuation nasal spray,suspension furosemide 40 mg tablet 40 mg PO DAILY 03/12/24 03/12/24 History lisinopril 40 mg tablet 40 mg PO DAILY 03/12/24 03/12/24 History tiotropium bromide 1.25 2 puff inhalation DAILY 03/12/24 03/12/24 History mcg/actuation mist for inhalation (Spiriva Respimat) triamterene 37.5 1 cap PO QAM 03/12/24 03/12/24 History mg-hydrochlorothiazide 25 mg capsule Allergies Allergy/AdvReac Type Severity Reaction Status Date / Time No Known Drug Allergies Allergy Verified 03/12/24 20:51 Exam Narrative Exam Narrative: Physical Exam GENERAL: ?vital signs reviewed, morbidly obese in mild distress, on 2L HEENT: pupils are equal round and reactive to light, extraocular movements are grossly within normal limits and oral mucosa is moist. NECK: Supple without lymphadenopathy or thyromegaly according to nursing staff examination observation HEART: Regular rate and rhythm without any rubs, murmurs, or gallops. LUNGS: poor airway entry, noted rales and wheezing ABDOMEN: Observation from nurse assisted exam, abdomen distended by soft with Positive bowel sounds noted. EXTREMITIES: Strength and sensation is observed to be grossly within normal limits in the upper and lower extremities.? No focal strength deficit is observed. SKIN:? Observed warm and dry with color normal Const Vital Signs, click to edit/add: Vital Signs - 24 hr 03/12/24 20:42 03/12/24 20:49 03/12/24 20:58 Temperature 98.2 F Pulse Rate 112 H Pulse Rate [Pulse Oximeter] 122 H Respiratory Rate 28 H Blood Pressure Blood Pressure [Right Upper Arm] 119/91 H Pulse Oximetry 94 94 96 Oxygen Delivery Method Nasal Cannula Oxygen Flow Rate 2 03/12/24 21:00 03/12/24 21:17 03/12/24 21:30 Temperature Pulse Rate 111 H 106 H 103 H Pulse Rate [Pulse Oximeter] Respiratory Rate Blood Pressure 97/79 Blood Pressure [Right Upper Arm] Pulse Oximetry 96 95 95 Oxygen Delivery Method Oxygen Flow Rate 03/12/24 22:00 03/12/24 23:08 03/12/24 23:18 Temperature Pulse Rate 100 97 101 H Pulse Rate [Pulse Oximeter] Respiratory Rate Blood Pressure 103/66 Blood Pressure [Right Upper Arm] Pulse Oximetry 96 96 94 Oxygen Delivery Method Oxygen Flow Rate 03/12/24 23:30 03/12/24 23:35 03/13/24 00:00 Temperature Pulse Rate 103 H 100 102 H Pulse Rate [Pulse Oximeter] Respiratory Rate Blood Pressure 124/76 Blood Pressure [Right Upper Arm] Pulse Oximetry 97 95 96 Oxygen Delivery Method Oxygen Flow Rate 03/13/24 00:01 03/13/24 00:01 03/13/24 00:01 Temperature Pulse Rate 100 100 100 Pulse Rate [Pulse Oximeter] Respiratory Rate Blood Pressure 111/86 111/86 111/86 Blood Pressure [Right Upper Arm] Pulse Oximetry 94 94 94 Oxygen Delivery Method Oxygen Flow Rate 03/13/24 00:30 03/13/24 00:31 03/13/24 00:31 Temperature Pulse Rate 105 H 105 H 105 H Pulse Rate [Pulse Oximeter] Respiratory Rate Blood Pressure 116/80 116/80 Blood Pressure [Right Upper Arm] Pulse Oximetry 95 95 95 Oxygen Delivery Method Oxygen Flow Rate 03/13/24 00:31 03/13/24 00:32 03/13/24 01:00 Temperature Pulse Rate 105 H 105 H 111 H Pulse Rate [Pulse Oximeter] Respiratory Rate Blood Pressure 116/80 Blood Pressure [Right Upper Arm] Pulse Oximetry 95 95 96 Oxygen Delivery Method Oxygen Flow Rate 03/13/24 01:05 03/13/24 01:05 03/13/24 01:05 Temperature Pulse Rate 107 H 107 H 107 H Pulse Rate [Pulse Oximeter] Respiratory Rate Blood Pressure Blood Pressure [Right Upper Arm] Pulse Oximetry 96 96 96 Oxygen Delivery Method Oxygen Flow Rate 03/13/24 01:05 03/13/24 01:30 03/13/24 01:34 Temperature Pulse Rate 107 H 101 H 105 H Pulse Rate [Pulse Oximeter] Respiratory Rate Blood Pressure Blood Pressure [Right Upper Arm] Pulse Oximetry 96 93 92 Oxygen Delivery Method Oxygen Flow Rate 03/13/24 02:00 03/13/24 02:04 03/13/24 02:05 Temperature Pulse Rate 102 H 100 100 Pulse Rate [Pulse Oximeter] Respiratory Rate Blood Pressure Blood Pressure [Right Upper Arm] Pulse Oximetry 90 90 91 Oxygen Delivery Method Oxygen Flow Rate 03/13/24 02:30 03/13/24 03:00 03/13/24 03:30 Temperature Pulse Rate 104 H 102 H 98 Pulse Rate [Pulse Oximeter] Respiratory Rate Blood Pressure Blood Pressure [Right Upper Arm] Pulse Oximetry 96 94 93 Oxygen Delivery Method Oxygen Flow Rate Common normals: oriented x3 and alert Exam limitations: no altered mental status General appearance: cooperative and ill appearing Nutritional appearance: obese Neuro Common normals: oriented x3 Sensorium/orientation: alert Hospitalist - H&P: Result Labs Labs: Short CBC 03/12/24 Range/Units 21:07 WBC 13.49 H (4.50-11.00) K/uL Hgb 15.4 (13.5-17.5) gm/dL Hct 44.5 (37.0-53.0) % Plt Count 214 (140-440) K/uL BMP 03/12/24 21:07 Sodium 130 L Potassium 3.7 Chloride 93 L Carbon Dioxide 25 BUN 16 Creatinine 0.9 Glucose 108 Calcium 8.8 Liver Function 03/12/24 Range/Units 21:07 Total Bilirubin 0.7 (0.1-1.5) mg/dL AST 57 H (12-35) U/L ALT 31 (4-50) U/L Alkaline Phosphatase 100 (40-150) U/L Albumin 4.5 (3.3-5.0) g/dL Urine 03/13/24 Range/Units 01:26 Urine Color Yellow (Yellow) Urine Appearance Clear (Clear) Urine pH 5.5 (5.0-8.5) Ur Specific [place] <= 1.005 (1.000-1.030) Urine Protein Negative (Negative) Urine Glucose (UA) Negative (Negative) Assessment and Plan Assessment and plan (1) Acute exacerbation of chronic obstructive pulmonary disease: Status: Acute (2) Blood-alcohol level elevation: Status: Acute (3) Aspiration pneumonitis: Status: Acute (4) Acute hypoxic respiratory failure: Status: Acute (5) Lactic acidosis: Status: Acute Plan This patient is experiencing an acute exacerbation of COPD. This is based on his symptom improvement after Solu-Medrol and DuoNebs. He has a extensive smoking history approximately 40 years half pack smoking. He does have progressive shortness of breath and increasing sputum production. He states he does not know if he is ever been examined or evaluated for COPD but he is on inhalers at home: Tiotropium and Symbicort. At this time I will start him on scheduled DuoNebs and methylprednisolone.. Will hold off on his inhalers. No indication for antibiotics at this time. Probable aspiration pneumonitis: Given his tobacco abuse disorder and his excessive alcohol intake in addition to his morbid obesity he is likely high risk for esophageal reflux disease. These can exacerbate and irritate his COPD by having aspiration pneumonitis. There is no indication for antibiotics but if he does spike a fever, he may benefit from antibiotics at some point. Acute hypoxic respiratory failure: When the patient presented to the hospital he was in extreme respiratory distress saturating in the low 70s. His lactic acidosis was likely consequence of his significant hypoxia. He is now settled on 2 L of oxygen. Lactic acidosis this is improved. I am holding his diuretics is likely going to contribute to volume loss. In addition he will need fluids and appropriate oxygen. Alcohol intoxication: Patient blood alcohol was markedly elevated despite only stating he only drank 4-5 drinks a day. At this time no indication for withdrawals. He states he does not have withdrawals or seizures. Total Time Spent Total Time Spent: 75 minutes Telehealth: Statement Statement Telehealth Visit: Today's History and Physical is provided via interactive telehealth by Reddy Benavidez MD.? Patient is located at [facility].? Provider is located at [facility].? Nursing staff assisted with the patient's exam. The visit being done today meets criteria for a telehealth visit and the patient or patient?s parent/guardian is aware the visit is a telehealth visit. Camera Start Time: 04:50 Camera End Time: 05:20
[2024-03-13] MEDS: 0.9 % SODIUM CHLORIDE 1000 ml 1,000 ML 125 ML IV (05:42)
[2024-03-13] MEDS: SODIUM CHLORIDE 0.9 % (FLUSH) 10 ML SYRINGE 5 ML IVF ×2 (05:42→20:52)
[2024-03-13 05:43] LABS: Magnesium* 1.7 mg/dL (1.5-2.6)
[2024-03-13] MEDS: OMEPRAZOLE 20 MG CAPSULE DR PO ×2 (05:43→16:23)
--- NOTE | 2024-03-13 06:13 | PC.NURSE ---
END OF SHIFT NOTE: PT FATIGUED, BUT COOPERATIVE. A&Ox3. DENIES CP & N/V. AMBULATES INDEPENDENTLY WITHIN ROOM. PT BECOMES SOB WITH ACTIVITY. VSS ON 1-2L O2 VIA NC; AFEBRILE. SPO2 90-95% ON 1-2L SUPPLEMENTAL OXYGEN. PT HAS CPAP AT HOME THAT WAS NOT BROUGHT INTO THE HOSPITAL THIS VISIT. IV TO RIGHT AC PATENT WITH NS@125ML/HR. CURRENT 1/2 PACK A DAY CIGARETTE SMOKER. RLQ DISCOMFORT WHEN PALPATED. UMBILICAL HERNIA PRESENT WITH NO DISCOMFORT. BLE EDEMA +1. LLE MELÉNDEZ WITH RED, SHINEY APPEARANCE; KLAUS. CALL LIGHT WITHIN PT?S REACH.?
[2024-03-13 06:23] LABS: Appearance Urine Clear (Clear); Bilirubin Urine Negative (Negative); Blood Urine Negative (Negative); Color Urine Yellow (Yellow); Glucose Urine Negative (Negative); Ketones Urine Negative (Negative); Leukocyte Esterase Urine Negative (Negative); Nitrite Urine Negative (Negative); Protein Urine Negative (Negative); Specific Gravity Urine <= 1.005 (1.000-1.030); Urobilinogen Urine 0.2 (0.2-1.0); pH Urine 5.5 (5.0-8.5)
[2024-03-13 07:12] LABS: RBC Urine 0-2 (0-2); WBC Urine 0-2 (0-5)
[2024-03-13 07:13] LABS: Squamous Epithelial Cell Urine Few (None-Few)
[2024-03-13 08:29] LABS: HCO3 VBG 26 mmol/L (21-28); Lactate* 2.6 mmol/L (0.5-1.9); PCO2 VBG 42 mmHG (40-50); PO2 VBG 44.3 mmHG (25-47); pH VBG 7.396 (7.32-7.43)
[2024-03-13 08:33] LABS: Basophils Absolute Auto 0.02 K/uL (0.00-0.30); Basophils Percent Auto 0.2 % (0.0-3.0); Hematocrit 45.3 % (37.0-53.0); Hemoglobin* 15.6 gm/dL (13.5-17.5); Immature Granulocytes Abs Auto 0.06 K/uL (0.00-0.30); Immature Granulocytes Pct Auto 0.7 %; Mean Corpuscular HGB Conc 34 gm/dL (32-36); Mean Corpuscular Hemoglobin 33 pg (26-34); Mean Corpuscular Volume 95 fL (80-100); Monocytes Percent Auto 0.8 % (0.0-11.0); Neutrophils Percent Auto 89.3 % (42.0-72.0); Platelet Count* 200 K/uL (140-440); RDW Coefficient of Variation % 11.8 % (11.5-15.5); Red Blood Count 4.76 m/uL (4.30-5.90)
[2024-03-13 08:40] LABS: Slide Review Reflex No
[2024-03-13] MEDS: lisinopriL 20 MG TABLET 40 MG PO (08:56)
[2024-03-13] MEDS: METHYLPREDNISOLONE SOD SUCC 40 MG/ML IVP ×2 (08:56→20:52)
[2024-03-13 08:59] LABS: Chloride* 97 mmol/L (96-114); Sodium* 132 mmol/L (135-149)
[2024-03-13 09:00] LABS: Potassium* 4.1 mmol/L (3.6-5.1)
[2024-03-13 09:02] LABS: Creatinine* 0.8 mg/dL (0.5-1.5); Estimated Glomerular Filt Rate 101 ml/min
[2024-03-13 09:03] LABS: Anion Gap 11 mEq/L (7-15); Blood Urea Nitrogen* 14 mg/dL (7-30); Calcium* 8.9 mg/dL (8.4-10.6); Carbon Dioxide* 24 mmol/L (20-32); Glucose* 176 mg/dL (60-115)
--- NOTE | 2024-03-13 10:38 | P.IMPN_ITS ---
Progress Note: A&P Assessment and plan (1) Acute hypoxic respiratory failure: Problem details: Oxygen saturations initially reported in 70s on arrival to the ED CT negative for PE or pericardial effusion, heart size normal, no consolidation, pleural effusion Initial leukocytosis, now resolved. Triple viral swab negative. CRP 1.7. Lactate down trending, remains mildly elevated, will follow BNP 24. Last echo 2011, repeat echo ordered VBG pH 7.396, pCO2 42, PO2 44, HC03 26 Continue oxygen supplementation, wean as able, to maintain saturations 88-92%, currently on 1L. May need to consider assessment for home oxygen RT consulted Status: Acute (2) Acute exacerbation of chronic obstructive pulmonary disease: Problem details: Acute on chronic, previous CT scan (10/2023) showing biapical paraseptal emphysema. I do not see that he has had PFTs done. Has been prescribed Spiriva and Advair. Does not have a nebulizer. Is not oxygen dependent Active smoker, cessation discussed DuoNebs q.i.d., albuterol nebs p.r.n. Continue IV prednisone for now Will defer antibiotics at this time, leukocytosis resolved, has remained afebrile, continue to monitor RT for pulmonary support Status: Acute (3) Aspiration pneumonitis: Problem details: Given his tobacco abuse disorder and his excessive alcohol intake in addition to his morbid obesity he is likely high risk for esophageal reflux disease. These can exacerbate and irritate his COPD by having aspiration pneumonitis PPI b.i.d. Mucinex b.i.d. Status: Acute (4) TOSHIA (obstructive sleep apnea): Problem details: Recently started on CPAP following a sleep study (12/2023) Status: Acute (5) Lactic acidosis: Problem details: In setting of acute hypoxic respiratory failure, continue to trend Status: Acute (6) Blood-alcohol level elevation: Problem details: ETOH 0.13. He states he does not have withdrawals or seizures. CIWA has not yet been ordered, monitor for need Status: Acute (7) Tachycardia: Problem details: Heart rate 98-115, EKG reviewed, troponin 0.01, CT without evidence of PE, lower extremity ultrasound negative for DVT Telemetry, supplemental oxygen Status: Acute (8) Edema: Problem details: Continue home dose of recently added Lasix for now Echo ordered, BNP unremarkable, no cardiomegaly noted on CT Status: Acute (9) Hypertension: Problem details: Continue lisinopril, atenolol Status: Acute (10) Hyperlipidemia: Problem details: Continue statin Status: Acute (11) Hyperglycemia: Problem details: With history of impaired fasting glucose. A1c 5.9 (12/2023) Nutrition consult Status: Acute Time Spent With Patient Total time spent: Total time spent caring for the patient today was 60 minutes. This includes time spent for the visit reviewing the chart, time spent during the visit, time spent after the visit and documentation and planning in coordination of care. Subjective Date Seen: 03/13/24 Interval history: Patient reports feeling much better this morning. Breathing and shortness of breath are improving. Has been weaned to 1 L oxygen per nasal cannula. Remains afebrile. Heart rate 98-108. Tolerating orals without nausea vomiting. Patient tells me he realizes and understands he needs to stop smoking and drinking. Uses his CPAP nightly. Exam Narrative: Exam Narrative: PHYSICAL EXAM General: Pleasant, conversant, NAD HEENT: Normocephalic, atraumatic, sclera white, EOMI Cardiovascular: RRR, S1S2. No pitting edema Pulmonary: CTA bilaterally without rhonchi, rales, expiratory wheezes currently. Mild dyspnea while conversing with 1 L per N/C Abdominal: Soft, obese, nondistended, umbilical hernia is seen Neurological: Alert, answering questions appropriately, cranial nerves intact, no focal findings Extremities: No gross joint deformity. Noted non pitting swelling and hair loss bilateral lower extremities. AROMI. Skin: Warm, dry. Const: Vital Signs, click to edit/add: Vital Signs - 24 hr 03/12/24 20:42 03/12/24 20:49 03/12/24 20:58 Temperature 98.2 F Pulse Rate 112 H Pulse Rate [Pulse Oximeter] 122 H Respiratory Rate 28 H Blood Pressure Blood Pressure [Le ft Arm] Blood Pressure [Ri ght Upper Arm] 119/91 H Pulse Oximetry 94 94 96 Oxygen Delivery Me thod Nasal Cannula Oxygen Flow Rate 2 03/12/24 21:00 03/12/24 21:17 03/12/24 21:30 Temperature Pulse Rate 111 H 106 H 103 H Pulse Rate [Pulse Oximeter] Respiratory Rate Blood Pressure 97/79 Blood Pressure [Le ft Arm] Blood Pressure [Ri ght Upper Arm] Pulse Oximetry 96 95 95 Oxygen Delivery Me thod Oxygen Flow Rate 03/12/24 22:00 03/12/24 23:08 03/12/24 23:18 Temperature Pulse Rate 100 97 101 H Pulse Rate [Pulse Oximeter] Respiratory Rate Blood Pressure 103/66 Blood Pressure [Le ft Arm] Blood Pressure [Ri ght Upper Arm] Pulse Oximetry 96 96 94 Oxygen Delivery Me thod Oxygen Flow Rate 03/12/24 23:30 03/12/24 23:35 03/13/24 00:00 Temperature Pulse Rate 103 H 100 102 H Pulse Rate [Pulse Oximeter] Respiratory Rate Blood Pressure 124/76 Blood Pressure [Le ft Arm] Blood Pressure [Ri ght Upper Arm] Pulse Oximetry 97 95 96 Oxygen Delivery Me thod Oxygen Flow Rate 03/13/24 00:01 03/13/24 00:01 03/13/24 00:01 Temperature Pulse Rate 100 100 100 Pulse Rate [Pulse Oximeter] Respiratory Rate Blood Pressure 111/86 111/86 111/86 Blood Pressure [Le ft Arm] Blood Pressure [Ri ght Upper Arm] Pulse Oximetry 94 94 94 Oxygen Delivery Me thod Oxygen Flow Rate 03/13/24 00:30 03/13/24 00:31 03/13/24 00:31 Temperature Pulse Rate 105 H 105 H 105 H Pulse Rate [Pulse Oximeter] Respiratory Rate Blood Pressure 116/80 116/80 Blood Pressure [Le ft Arm] Blood Pressure [Ri ght Upper Arm] Pulse Oximetry 95 95 95 Oxygen Delivery Me thod Oxygen Flow Rate 03/13/24 00:31 03/13/24 00:32 03/13/24 01:00 Temperature Pulse Rate 105 H 105 H 111 H Pulse Rate [Pulse Oximeter] Respiratory Rate Blood Pressure 116/80 Blood Pressure [Le ft Arm] Blood Pressure [Ri ght Upper Arm] Pulse Oximetry 95 95 96 Oxygen Delivery Me thod Oxygen Flow Rate 03/13/24 01:05 03/13/24 01:05 03/13/24 01:05 Temperature Pulse Rate 107 H 107 H 107 H Pulse Rate [Pulse Oximeter] Respiratory Rate Blood Pressure Blood Pressure [Le ft Arm] Blood Pressure [Ri ght Upper Arm] Pulse Oximetry 96 96 96 Oxygen Delivery Me thod Oxygen Flow Rate 03/13/24 01:05 03/13/24 01:30 03/13/24 01:34 Temperature Pulse Rate 107 H 101 H 105 H Pulse Rate [Pulse Oximeter] Respiratory Rate Blood Pressure Blood Pressure [Le ft Arm] Blood Pressure [Ri ght Upper Arm] Pulse Oximetry 96 93 92 Oxygen Delivery Me thod Oxygen Flow Rate 03/13/24 02:00 03/13/24 02:04 03/13/24 02:05 Temperature Pulse Rate 102 H 100 100 Pulse Rate [Pulse Oximeter] Respiratory Rate Blood Pressure Blood Pressure [Le ft Arm] Blood Pressure [Ri ght Upper Arm] Pulse Oximetry 90 90 91 Oxygen Delivery Me thod Oxygen Flow Rate 03/13/24 02:30 03/13/24 03:00 03/13/24 03:30 Temperature Pulse Rate 104 H 102 H 98 Pulse Rate [Pulse Oximeter] Respiratory Rate Blood Pressure Blood Pressure [Le ft Arm] Blood Pressure [Ri ght Upper Arm] Pulse Oximetry 96 94 93 Oxygen Delivery Me thod Oxygen Flow Rate 03/13/24 04:00 03/13/24 04:00 03/13/24 04:00 Temperature 98.2 F Pulse Rate Pulse Rate [Pulse Oximeter] 101 H Respiratory Rate 22 22 Blood Pressure Blood Pressure [Le ft Arm] 126/75 Blood Pressure [Ri ght Upper Arm] Pulse Oximetry 93 93 93 Oxygen Delivery Me thod Nasal Cannula Nasal Cannula Oxygen Flow Rate 2 2 03/13/24 06:08 03/13/24 08:00 03/13/24 08:00 Temperature Pulse Rate Pulse Rate [Pulse Oximeter] Respiratory Rate Blood Pressure Blood Pressure [Le ft Arm] Blood Pressure [Ri ght Upper Arm] Pulse Oximetry 92 92 92 Oxygen Delivery Me thod Nasal Cannula Oxygen Flow Rate 1 03/13/24 08:00 Temperature 97.7 F Pulse Rate Pulse Rate [Pulse Oximeter] 108 H Respiratory Rate 18 Blood Pressure Blood Pressure [Le ft Arm] 151/90 H Blood Pressure [Ri ght Upper Arm] Pulse Oximetry 92 Oxygen Delivery Me thod Nasal Cannula Oxygen Flow Rate 1 Labs Labs: Laboratory Results - last 24 hr 03/12/24 03/12/24 03/12/24 20:00 21:07 22:06 WBC 13.49 H RBC 4.63 Hgb 15.4 Hct 44.5 MCV 96 MCH 33 MCHC 35 RDW Coeff of [place] 11.9 Plt Count 214 Neut % (Auto) 62.8 Lymph % (Auto) 26.2 [place] % (Auto) 7.5 Eos % (Auto) 2.6 Baso % (Auto) 0.2 Neut # (Auto) 8.50 H Lymph # (Auto) 3.50 H [place] # (Auto) 1.00 H Eos # (Auto) 0.40 Baso # (Auto) 0.00 Abs Immat Gran (auto) 0.10 Imm/Tot Granulo (auto) 0.7 VBG pH VBG pCO2 VBG pO2 VBG HCO3 Sodium 130 L Potassium 3.7 Chloride 93 L Carbon Dioxide 25 Anion Gap 12 BUN 16 Creatinine 0.9 Estimated GFR 98 Glucose 108 Lactate 4.1 H* Calcium 8.8 Magnesium 1.7 Total Bilirubin 0.7 AST 57 H ALT 31 Alkaline Phosphatase 100 C-Reactive Protein 1.7 H NT-Pro-B Natriuret Pep 24 Total Protein 8.1 Albumin 4.5 Lipase 189 Urine Color Urine Appearance Urine pH Ur Specific [place] Urine Protein Urine Glucose (UA) Urine Ketones Urine Blood Urine Nitrite Urine Bilirubin Urine Urobilinogen Ur Leukocyte Esterase Urine RBC Urine WBC Ur Squamous Epith Cells Urine Bacteria Urine Opiates Screen Ur Oxycodone Screen Urine Methadone Screen Ur Barbiturates Screen U Tricyclic Antidepress Ur Phencyclidine Scrn Ur Amphetamines Screen U Methamphetamines Scrn U Benzodiazepines Scrn Urine Cocaine Screen U Marijuana (THC) Screen Ur Drug Screen Comment Ethyl Alcohol 0.13 H SARS-CoV-2 (PCR) Influenza Type A (PCR) Influenza Type B (PCR) RSV (PCR) Lab Acknowledgement POC Creatinine 1.2 POC Troponin I 0.00 L 03/12/24 03/13/24 03/13/24 22:58 00:23 01:17 WBC RBC Hgb Hct MCV MCH MCHC RDW Coeff of [place] Plt Count Neut % (Auto) Lymph % (Auto) [place] % (Auto) Eos % (Auto) Baso % (Auto) Neut # (Auto) Lymph # (Auto) [place] # (Auto) Eos # (Auto) Baso # (Auto) Abs Immat Gran (auto) Imm/Tot Granulo (auto) VBG pH VBG pCO2 VBG pO2 VBG HCO3 Sodium Potassium Chloride Carbon Dioxide Anion Gap BUN Creatinine Estimated GFR Glucose Lactate 2.5 H Calcium Magnesium Total Bilirubin AST ALT Alkaline Phosphatase C-Reactive Protein NT-Pro-B Natriuret Pep Total Protein Albumin Lipase Urine Color Urine Appearance Urine pH Ur Specific [place] Urine Protein Urine Glucose (UA) Urine Ketones Urine Blood Urine Nitrite Urine Bilirubin Urine Urobilinogen Ur Leukocyte Esterase Urine RBC Urine WBC Ur Squamous Epith Cells Urine Bacteria Urine Opiates Screen Ur Oxycodone Screen Urine Methadone Screen Ur Barbiturates Screen U Tricyclic Antidepress Ur Phencyclidine Scrn Ur Amphetamines Screen U Methamphetamines Scrn U Benzodiazepines Scrn Urine Cocaine Screen U Marijuana (THC) Screen Ur Drug Screen Comment Ethyl Alcohol SARS-CoV-2 (PCR) Influenza Type A (PCR) Influenza Type B (PCR) RSV (PCR) Lab Acknowledgement Test Added POC Creatinine POC Troponin I 0.01 03/13/24 03/13/24 03/13/24 01:23 01:26 06:00 WBC RBC Hgb Hct MCV MCH MCHC RDW Coeff of [place] Plt Count Neut % (Auto) Lymph % (Auto) [place] % (Auto) Eos % (Auto) Baso % (Auto) Neut # (Auto) Lymph # (Auto) [place] # (Auto) Eos # (Auto) Baso # (Auto) Abs Immat Gran (auto) Imm/Tot Granulo (auto) VBG pH VBG pCO2 VBG pO2 VBG HCO3 Sodium Potassium Chloride Carbon Dioxide Anion Gap BUN Creatinine Estimated GFR Glucose Lactate Calcium Magnesium Total Bilirubin AST ALT Alkaline Phosphatase C-Reactive Protein NT-Pro-B Natriuret Pep Total Protein Albumin Lipase Urine Color Yellow Yellow Urine Appearance Clear Clear Urine pH 5.5 5.5 Ur Specific [place] <= 1.005 <= 1.005 Urine Protein Negative Negative Urine Glucose (UA) Negative Negative Urine Ketones Negative Negative Urine Blood Negative Negative Urine Nitrite Negative Negative Urine Bilirubin Negative Negative Urine Urobilinogen 0.2 0.2 Ur Leukocyte Esterase Negative Negative Urine RBC 0-2 0-2 Urine WBC 0-2 0-2 Ur Squamous Epith Cells Few Few Urine Bacteria None None Urine Opiates Screen Negative Ur Oxycodone Screen Negative Urine Methadone Screen Negative Ur Barbiturates Screen Negative U Tricyclic Antidepress Negative Ur Phencyclidine Scrn Negative Ur Amphetamines Screen Negative U Methamphetamines Scrn Negative U Benzodiazepines Scrn Negative Urine Cocaine Screen Negative U Marijuana (THC) Screen Negative Ur Drug Screen Comment See Note Ethyl Alcohol SARS-CoV-2 (PCR) Negative SARS-CoV-2 Influenza Type A (PCR) Negative PCR FLU A Influenza Type B (PCR) Negative PCR FLU B RSV (PCR) Negative PCR RSV Lab Acknowledgement Test Added POC Creatinine POC Troponin I 03/13/24 08:20 WBC 8.90 RBC 4.76 Hgb 15.6 Hct 45.3 MCV 95 MCH 33 MCHC 34 RDW Coeff of [place] 11.8 Plt Count 200 Neut % (Auto) 89.3 H Lymph % (Auto) 9.0 L [place] % (Auto) 0.8 Eos % (Auto) 0.0 Baso % (Auto) 0.2 Neut # (Auto) 7.90 H Lymph # (Auto) 0.80 L [place] # (Auto) 0.10 Eos # (Auto) 0.00 Baso # (Auto) 0.02 Abs Immat Gran (auto) 0.06 Imm/Tot Granulo (auto) 0.7 VBG pH 7.396 VBG pCO2 42 VBG pO2 44.3 VBG HCO3 26 Sodium 132 L Potassium 4.1 Chloride 97 Carbon Dioxide 24 Anion Gap 11 BUN 14 Creatinine 0.8 Estimated GFR 101 Glucose 176 H Lactate 2.6 H Calcium 8.9 Magnesium Total Bilirubin AST ALT Alkaline Phosphatase C-Reactive Protein NT-Pro-B Natriuret Pep Total Protein Albumin Lipase Urine Color Urine Appearance Urine pH Ur Specific [place] Urine Protein Urine Glucose (UA) Urine Ketones Urine Blood Urine Nitrite Urine Bilirubin Urine Urobilinogen Ur Leukocyte Esterase Urine RBC Urine WBC Ur Squamous Epith Cells Urine Bacteria Urine Opiates Screen Ur Oxycodone Screen Urine Methadone Screen Ur Barbiturates Screen U Tricyclic Antidepress Ur Phencyclidine Scrn Ur Amphetamines Screen U Methamphetamines Scrn U Benzodiazepines Scrn Urine Cocaine Screen U Marijuana (THC) Screen Ur Drug Screen Comment Ethyl Alcohol SARS-CoV-2 (PCR) Influenza Type A (PCR) Influenza Type B (PCR) RSV (PCR) Lab Acknowledgement POC Creatinine POC Troponin I
[2024-03-13] MEDS: PERFLUTREN LIPID MICROSPHERES 2 ML VIAL IV (15:51)
--- NOTE | 2024-03-13 16:56 | PC.NURSE ---
Shift Summary: Patient pleasant and cooperative. Up with SBA, now independent without IVF running. Vitals stable, HR increased due to anxiety related to SOB. HR 90s-110s, increased after ambulation. Continues to need o2 @ 1L/NC, o2 sats 88-92%. Tolerating regular diet well, c/o pain 01/17 x1 during breakfast, patient stated it resolved on own quickly after taking a break with meal. Echo down this afternoon. Expiratory wheeze heard with auscultation, resolved with scheduled neb.
[2024-03-13] MEDS: ATORVASTATIN CALCIUM 40 MG TABLET PO (18:10)
[2024-03-13] MEDS: guaiFENesin 600 MG TAB.ER.12H PO (20:51)
[2024-03-13] MEDS: atenoloL 50 MG TABLET 100 MG PO (20:52)
[2024-03-14] VITALS: BP 123/72; PULSE 91; RESP 16; TEMP 36.8; O2SAT 90
[2024-03-14 06:00] VITALS: BP 137/79; PULSE 95; RESP 16; TEMP 36.6; O2SAT 91
[2024-03-14 06:22] LABS: Hemoglobin* 15.5 gm/dL (13.5-17.5); Mean Corpuscular HGB Conc 34 gm/dL (32-36); Mean Corpuscular Hemoglobin 33 pg (26-34); Mean Corpuscular Volume 98 fL (80-100); Platelet Count* 213 K/uL (140-440); White Blood Count* 18.37 K/uL (4.50-11.00)
[2024-03-14 06:33] LABS: Lactate* 2.6 mmol/L (0.5-1.9)
[2024-03-14] MEDS: OMEPRAZOLE 20 MG CAPSULE DR PO (06:38)
[2024-03-14] MEDS: IPRAT-ALBUT 0.5-2.5 MG/3 ML NEB 1 NEB IH ×2 (06:42→08:51)
[2024-03-14 06:43] LABS: Slide Review Reflex No
[2024-03-14 07:00] VITALS: RESP 22; O2SAT 94
--- NOTE | 2024-03-14 07:10 | PC.NURSE ---
END OF SHIFT NOTE: PT UP INDEPENDENT WITHIN ROOM. SPO2 88-93% ON 1L NC. TOSHIA NO CPAP USE THIS HOSPITAL STAY. PT REPORTS INCREASED COUGH THIS MORNING WITH SOME RELIEF FROM PRN DUO NEB.
[2024-03-14 07:30] VITALS: BP 132/78; PULSE 89; RESP 22; TEMP 36.8; O2SAT 94
[2024-03-14 07:38] LABS: Chloride* 105 mmol/L (96-114)
[2024-03-14 07:39] LABS: Potassium* 4.4 mmol/L (3.6-5.1); Sodium* 137 mmol/L (135-149)
[2024-03-14 07:41] LABS: Creatinine* 0.8 mg/dL (0.5-1.5); Estimated Glomerular Filt Rate 101 ml/min
[2024-03-14 07:42] LABS: Anion Gap 7 mEq/L (7-15); Blood Urea Nitrogen* 19 mg/dL (7-30); Calcium* 9.2 mg/dL (8.4-10.6); Carbon Dioxide* 25 mmol/L (20-32); Glucose* 143 mg/dL (60-115)
[2024-03-14 08:00] VITALS: PULSE 80
[2024-03-14] MEDS: SODIUM CHLORIDE 0.9 % (FLUSH) 10 ML SYRINGE 5 ML IVF (08:51)
[2024-03-14] MEDS: FUROSEMIDE 40 MG TABLET PO (08:51)
[2024-03-14] MEDS: guaiFENesin 600 MG TAB.ER.12H PO (08:51)
[2024-03-14] MEDS: TRIAMTERENE-HCTZ 37.5-25 MG TB 1 TAB PO (08:51)
[2024-03-14] MEDS: lisinopriL 20 MG TABLET 40 MG PO (08:51)
[2024-03-14] MEDS: FINASTERIDE 5 MG TABLET PO (08:51)
[2024-03-14] MEDS: METHYLPREDNISOLONE SOD SUCC 40 MG/ML IVP (08:52)
--- NOTE | 2024-03-14 11:36 | PM.DS1 ---
DS: Providers Provider Date Seen: 03/14/24 Date of admission: 03/13/24 03:51 Primary care physician: Rufus Little, MS, LAT, ATC Admitting Clinician: Reddy Benavidez MD Consults: 03/13/24 04:49 Consult to Respiratory Therapy [CONS] Routine Comment: Reason(s) for RT Consult:: Smoking Cessation 03/13/24 04:54 Consult to Nutrition [CONS] Routine Comment: Reason for consult:: Miscellaneous 03/13/24 11:15 Consult to Nutrition [CONS] Routine Comment: Reason for consult:: Nutritional Consult Comment: Obesity, body habitus/respiratory failure, A1c 5.9 Attending Physician on discharge: BARNEY Blake, [facility] Date of Discharge: 03/14/24 DS: Diagnosis Discharge Diagnosis (1) Acute hypoxic respiratory failure: Status: Resolved Problem details: Resolved prior to discharge. Oxygen saturations initially reported in 70s on arrival to the ED. CT negative for PE or pericardial effusion, heart size normal, no consolidation, pleural effusion. Initial leukocytosis, now resolved. Triple viral swab negative. CRP 1.7. Lactate down trending. No hypercapnia. BNP 24. Last echo 2011, repeat echo 03/13/24 shows moderately increased wall thickness, normal global systolic function with EF > 75%, global systolic RV function is normal, no hemodynamically significant valve disease noted. RT consulted. Patient was weaned to room air, maintaining saturations near 90% with ambulation, improving at rest. (2) Acute exacerbation of chronic obstructive pulmonary disease: Status: Acute Problem details: Acute on chronic, previous CT scan (10/2023) showing biapical paraseptal emphysema. I do not see that he has had PFTs done. Has been prescribed Spiriva and Advair. Does not have a nebulizer. Is not oxygen dependent. RT consulted for pulmonary support. Active smoker, cessation discussed Initiated on IV prednisone, transition to oral at time of discharge to complete 5 day course. Antibiotics deferred, leukocytosis resolved (bump noted following IV steroid), remained afebrile. (3) Aspiration pneumonitis: Status: Acute Problem details: Given his tobacco abuse disorder and his excessive alcohol intake in addition to his morbid obesity he is likely high risk for esophageal reflux disease. These can exacerbate and irritate his COPD by having aspiration pneumonitis PPI b.i.d. and Mucinex b.i.d. to be continued on discharge. (4) TOSHIA (obstructive sleep apnea): Status: Acute Problem details: Recently started on CPAP following a sleep study (12/2023) (5) Lactic acidosis: Status: Acute Problem details: In setting of acute hypoxic respiratory failure (6) Blood-alcohol level elevation: Status: Acute Problem details: ETOH 0.13. Denies history of withdrawals or seizures. (7) Tachycardia: Status: Resolved Problem details: Heart rate 98-115, EKG reviewed, troponin 0.01, CT without evidence of PE, lower extremity ultrasound negative for DVT (8) Edema: Status: Acute Problem details: Continue home dose of recently added Lasix for now Echo reviewed, BNP unremarkable, no cardiomegaly noted on CT (9) Hypertension: Status: Acute Problem details: Continue lisinopril, atenolol (10) Hyperlipidemia: Status: Acute Problem details: Continue statin (11) Hyperglycemia: Status: Acute Problem details: With history of impaired fasting glucose. A1c 5.9 (12/2023). Nutrition consult following discharge. Follow-up with PCP DS: Summary Hospital Course Hospital Course: [age] year old male past medical history significant for obesity, active smoker, COPD, TOSHIA, hyperglycemia, edema, hypertension, hyperlipidemia was admitted to the medical floor for management acute hypoxic respiratory failure in setting of COPD exacerbation. Course of care and details as noted above. Patient is discharged to complete 5 day course oral steroids, antibiotics were deferred. No home oxygen requirements met. Continue home inhalers. Will need close follow-up with PCP for further workup and management COPD. Recommend PFTs. Recommend pulmonary rehab. Discussed smoking cessation, weight loss, decreased alcohol intake. Would benefit from outpatient nutrition consult. Prediabetic A1c noted. Remainder of chronic medical comorbidities were monitored and managed with home medications. Time spent discussing smoking cessation with patient: more than 10 minutes Status at Discharge Functional status at discharge: independent ambulation Overall status at discharge: patient is progressing back to baseline Time Spent with Patient Time attestation: Total time spent providing and/or coordinating discharge services: Time spent: Greater than 30 minutes Exam Narrative: Exam Narrative: PHYSICAL EXAM General: Pleasant, conversant, NAD Cardiovascular: RRR Pulmonary: No dyspnea on room air at rest Neurological: Alert, answering questions appropriately Skin: Warm, dry. Const: Vital Signs, click to edit/add: Vital Signs - 24 hr 03/13/24 14:16 03/13/24 15:18 03/13/24 15:19 Temperature Pulse Rate 114 H Pulse Rate [Pulse Oximeter] Respiratory Rate Blood Pressure [Le ft Arm] Pulse Oximetry 93 93 Oxygen Delivery Me thod Nasal Cannula Oxygen Flow Rate 1 03/13/24 15:19 03/13/24 19:08 03/13/24 19:50 Temperature 98.1 F 98.5 F Pulse Rate 116 H Pulse Rate [Pulse Oximeter] 107 H 107 H Respiratory Rate 20 22 Blood Pressure [Le ft Arm] 114/80 125/75 Pulse Oximetry 93 93 Oxygen Delivery Me thod Nasal Cannula Nasal Cannula Oxygen Flow Rate 1 1 03/13/24 19:50 03/13/24 19:50 03/13/24 19:50 Temperature Pulse Rate Pulse Rate [Pulse Oximeter] 107 H Respiratory Rate 22 Blood Pressure [Le ft Arm] Pulse Oximetry 93 93 Oxygen Delivery Me thod Room Air Oxygen Flow Rate 1 03/14/24 00:00 03/14/24 06:00 03/14/24 07:00 Temperature 98.2 F 97.9 F Pulse Rate Pulse Rate [Pulse Oximeter] 91 95 Respiratory Rate 16 16 Blood Pressure [Le ft Arm] 123/72 137/79 Pulse Oximetry 90 91 94 Oxygen Delivery Me thod Nasal Cannula Nasal Cannula Oxygen Flow Rate 1 1 03/14/24 07:00 03/14/24 08:00 Temperature Pulse Rate 80 Pulse Rate [Pulse Oximeter] Respiratory Rate 22 Blood Pressure [Le ft Arm] Pulse Oximetry 94 Oxygen Delivery Me thod Room Air Oxygen Flow Rate DS: Data Data Completed and Pending Labs on day of discharge: Labs from last 24 hours 03/14/24 06:08 WBC 18.37 H RBC 4.70 Hgb 15.5 Hct 46.0 MCV 98 MCH 33 MCHC 34 Plt Count 213 Sodium 137 Potassium 4.4 Chloride 105 Carbon Dioxide 25 Anion Gap 7 BUN 19 Creatinine 0.8 Estimated GFR 101 Glucose 143 H Lactate 2.6 H Calcium 9.2 Imaging Chest x-ray: Attestation: I have reviewed the pertinent imaging results. Radiologist's impression: Chest 1 view. COMPARISON: None. FINDINGS: Cardiovascular and mediastinum: Heart size and vasculature are normal in caliber and appearance. Lungs and pleural spaces: Hazy opacity in the medial right lung base. Left lung is clear. No pleural effusions or pneumothorax. Bones and soft tissues: No significant findings. IMPRESSION: Hazy opacity in the medial right lung base, nonspecific may represent atelectasis or infiltrates. CT Chest/Ab/Pelvis: Attestation: I have reviewed the pertinent imaging results. Radiologist's impression: CT chest, abdomen and pelvis acquired with 150 cc of Isovue 370 IV contrast. COMPARISON: None. FINDINGS: CHEST: Cardiovascular structures: Heart size is normal. Thoracic aorta and main pulmonary artery are normal in caliber. No pulmonary embolism or pericardial effusion. Mediastinum and azeb: No mass or adenopathy. Lungs and pleura: No consolidation, suspicious nodule, pleural effusion, or pneumothorax. Chest wall and axilla: No mass or adenopathy. Bones: No suspicious bone lesions. Unremarkable for age. ABDOMEN AND PELVIS: Liver: Unremarkable. Gallbladder and bile ducts: Unremarkable. Pancreas: Unremarkable. Spleen: Unremarkable. Adrenal glands: Unremarkable. Kidneys: Unremarkable. GI tract: Unremarkable. Vascular structures: Normal caliber abdominal aorta with mild atherosclerotic calcification. Lymph nodes: Unremarkable. Miscellaneous: Small fat-containing periumbilical hernia. No free air or significant free fluid. Pelvic Organs: Unremarkable. Bones: No suspicious bone lesions. Left total hip arthroplasty. Otherwise, unremarkable for age. IMPRESSION: No acute findings within the chest, abdomen, and pelvis. Venous US: Attestation: I have reviewed the pertinent imaging results. Radiologist's impression: Shortness of breath. TECHNIQUE: Ultrasound venous duplex bilateral lower extremity. Compression venous exam was performed using watson-scale, color Doppler, and spectral Doppler analysis. COMPARISON: None. FINDINGS: Deep veins: Sonographic imaging demonstrates the bilateral common femoral, deep femoral, superficial femoral, popliteal, and posterior tibial veins to be fully compressible with normal color Doppler blood flow. Superficial veins: Greater saphenous vein is fully compressible. No popliteal cyst. IMPRESSION: No sign of deep venous thrombosis in the bilateral lower extremities. Discharge Plan Discharge Disposition: Home, Self-Care Date of Admission: 03/13/24 03:51 Attending Provider on Discharge: Natalie Curiel Primary Care Provider: Rufus Little Condition: Improved Anticipated Discharge Date/Time: 03/14/24 11:04 Discharge Medications: New omeprazole 20 mg Capsule,Delayed Release(Dr/Ec) 20 mg PO DAILY Qty: 30 0RF prednisone 20 mg tablet 40 mg PO DAILY 3 Days Qty: 6 0RF Continued furosemide 40 mg tablet 40 mg PO DAILY atorvastatin 40 mg tablet 40 mg PO QPM fluticasone propion-salmeterol 250-50 mcg/dose blister with device 1 ea INHALATION Q12H atenolol 100 mg tablet 100 mg PO DAILY triamterene-hydrochlorothiazid 37.5-25 mg capsule 1 cap PO QAM lisinopril 40 mg tablet 40 mg PO DAILY fluticasone propionate 50 mcg/actuation spray,suspension 2 spray INTRANASAL DAILY finasteride 5 mg tablet 5 mg PO DAILY Spiriva Respimat 1.25 mcg/actuation mist 2 puff INHALATION DAILY Discharge Orders: Discharge Order (Routine); Ordered 03/14/24 Ordered By: Natalie Curiel Patient Education: Prednisone (By mouth), Omeprazole (By mouth), Sleep Apnea (GEN), Cigarette Smoking and Your Health (GEN), COPD (Chronic Obstructive Pulmonary Disease) (GEN) Additional Instructions: Close follow up with PCP for ongoing management COPD. You have 3 days of steroids left to take. Continue omeprazole for reflux. Recommend PFTs, pumonary rehab Activity Level: Activity as Tolerated Discharge Diet: Heart Healthy (2 gm sodium, low fat) Follow Up Appointments: Rufus Little, MS, LAT, ATC [Primary Care Provider] - (Post hospital follow-up 3-5 days, acute hypoxic respiratory failure, COPD management. Recommend outpatient PFTs, pulmonary rehab. Smoking cessation, weight loss (prediabetic A1c), decreased alcohol use) Forms: [employer] Info Instructions
--- NOTE | 2024-03-14 11:39 | PC.NURSE ---
shift note: pt ambulated 200ft in hallway [facility] with steady gait. pt starting sat=94 RA, HR 89, RR=22. after ambulation sats 90%, HR=92, RR=24. Pt denies chest pain or pressure. pt instructed to sit and do pursed lip breathing after ambulation. Dr. Curiel notified of trial and ticket writer informed Josue Ramirez
--- NOTE | 2024-03-14 13:36 | PC.NURSE ---
shift note; vss stable. pt up amb in [place] with steady gait. IV dc'd intact rt AC. Reviewed dc instructions and copies sent with pt at dc. Belongings reviewed and sent with pt at dc.
== END 2024-03-14 12:45 | disposition home or self-care (01) ==
LOC: ED 03-13 01:49 → MEDSURG 03-13 03:53
PROVIDERS: Admitting Provider Student in an Organized Health Care Education/Training Program; Emergency Provider Family Medicine; Visit Provider Physician Assistant
DX: J44.1 Chronic obstructive pulmonary disease with (acute) exacerbation (principal); R78.0 Finding of alcohol in blood; J69.0 Pneumonitis due to inhalation of food and vomit; J96.01 Acute respiratory failure with hypoxia; E87.20 Acidosis, unspecified; G47.33 Obstructive sleep apnea (adult) (pediatric); R00.0 Tachycardia, unspecified; R60.9 Edema, unspecified; I10 Essential (primary) hypertension; E78.5 Hyperlipidemia, unspecified; R73.9 Hyperglycemia, unspecified
CPT/HCPCS: 36415; 71045; 71260; 74177; 80048; 80053; 80306; 81001; 82077; 82565; 82803; 83605; 83690; 83735; 83880; 84484; 85025; 85027; 86140; 87631; 93005; 93306; 93970; 94640; 94664; 94761; 96361; 96374; 96375; 96376; 99284; 99285; G0378; A9270; J1940; J2919; J7030; Q9957; Q9967